=== PATIENT | male | born 1985 | race Two or more races ===

== ENCOUNTER 2016-10-19 15:21 | Emergency (ER) | payer BC ==
[~2016-10-19] VITALS: Ht 175.3 cm; Wt 72.6 kg
[2016-10-19 16:12] VITALS: BP 119/73
[2016-10-19] MEDS ORDERED: KETOROLAC TROMETH 60MG/2ML VIAL IM ONE (16:45)
== END 2016-10-19 17:05 | disposition home or self-care (01) ==
LOC: ER 15:30
DX: S39.012A Strain of muscle, fascia and tendon of lower back, initial encounter (principal); X58.XXXA Exposure to other specified factors, initial encounter; Y93.89 Activity, other specified; Y99.8 Other external cause status; Y92.89 Other specified places as the place of occurrence of the external cause
CPT/HCPCS: 72100; 96372; 99284; J1885